=== PATIENT | male | born 1940 | race Caucasian/White ===

== ENCOUNTER → 2017-02-28 | Outpatient (CLI) | payer MEDICARE, OTHER ==
[~2017-02-28] MED LIST: ALLERGY PILL; CALCIUM 600 + M1 TAB PO; CETIRIZINE10 MG PO; CLINDAMYCIN HC300 MG PO; Ciprofloxacin500 MG PO; MELOXICAM15 MG PO; MUCUS ER600 MG PO; MULTI VITAMINS1 TAB PO; NEURONTIN300 MG PO; PRILOSEC40 MG PO; TAMSULOSIN HCL0.4 MG PO; VITAMIN E400 IU PO; VOLTAREN75 MG PO
== END | disposition home or self-care (01) ==
LOC: CT 13:35
DX: I67.82 Cerebral ischemia (principal)

== ENCOUNTER → 2017-03-28 | Outpatient (CLI) | payer MEDICARE, OTHER | END | disposition home or self-care (01) | LOC: US 12:09 | DX: I65.23 Occlusion and stenosis of bilateral carotid arteries (principal); R51 Headache ==

== ENCOUNTER → 2018-04-10 | Outpatient (CLI) | payer MEDICARE, BC | END | disposition home or self-care (01) | LOC: RAD 11:12 | DX: M48.07 Spinal stenosis, lumbosacral region (principal); M51.37 Other intervertebral disc degeneration, lumbosacral region; R20.0 Anesthesia of skin ==

== ENCOUNTER 2018-07-01 14:21 | Emergency (ER) | payer MEDICARE, BC ==
[~2018-07-01] VITALS: Ht 172.7 cm; Wt 83.9 kg
== END 2018-07-01 14:41 | disposition home or self-care (01) ==
LOC: ED 14:21
DX: H00.014 Hordeolum externum left upper eyelid (principal); Z79.899 Other long term (current) drug therapy

== ENCOUNTER 2022-06-30 15:14 | Emergency (ER) | payer MEDICARE, OTHER ==
[~2022-06-30] VITALS: Ht 172.7 cm; Wt 86.8 kg
[~2022-06-30 15:14] MED LIST changes: +DITROPAN XL5 MG PO
[2022-06-30] MEDS ORDERED: SECURA PROTECTI50 GM T ×2 (15:28→15:35)
[2022-06-30] MEDS ORDERED: Nizoral 2%15 GM T ×2 (15:28→15:35)
== END 2022-06-30 15:49 | disposition home or self-care (01) ==
LOC: ED 15:14
DX: B37.49 Other urogenital candidiasis (principal); Z98.890 Other specified postprocedural states

== ENCOUNTER → 2022-09-02 | Outpatient (CLI) | payer OTHER ==
[~2022-09-02] MED LIST changes: +Nizoral 2%15 GM T; +SECURA PROTECTI50 GM T
== END | disposition home or self-care (01) ==
LOC: RAD 10:02
PROVIDERS: ATTEND Internal Medicine
DX: M47.817 Spondylosis without myelopathy or radiculopathy, lumbosacral region (principal); M48.07 Spinal stenosis, lumbosacral region; M47.896 Other spondylosis, lumbar region

== ENCOUNTER 2023-05-09 18:54 | Emergency (ER) | payer OTHER ==
[~2023-05-09] VITALS: Ht 167.6 cm; Wt 81.6 kg
== END 2023-05-09 22:46 ==
LOC: ED 18:54 → MEDIPORT 19:55 → ED 19:55 → MEDIPORT 22:46
DX: M19.011 Primary osteoarthritis, right shoulder (principal); M17.12 Unilateral primary osteoarthritis, left knee; Z98.890 Other specified postprocedural states; Z90.89 Acquired absence of other organs; Z98.41 Cataract extraction status, right eye

== ENCOUNTER 2023-07-29 08:17 | Emergency (ER) | payer OTHER ==
[~2023-07-29] VITALS: Wt 86.6 kg
[2023-07-29 08:58] LABS: HEMATOCRIT 36.2 % (42.0-52.0); MEAN CORPUSCULAR HGB 30.7 pg (27.0-31.0); MEAN CORPUSCULAR HGB CONC 30.7 g/dl (33.0-37.0); MEAN PLATELET VOLUME 9.6 fl (9.6-12.3); PLATELET COUNT AUTOMATED 258 10*3/uL (130-400); RED BLOOD COUNT 3.62 10*6/uL (4.50-5.90); RED CELL DISTRI WIDTH 13.2 % (0-14.5); WHITE BLOOD COUNT 36.2 10*3/uL (4.8-10.8)
[2023-07-29] MEDS ORDERED: CARBIDOPA-LEVO1 EAC6 PO (09:00)
[2023-07-29] MEDS ORDERED: CLARITIN10 MG PO (09:01)
[2023-07-29] MEDS ORDERED: VITAMIN D350 MC3 PO (09:01)
[2023-07-29] MEDS ORDERED: DICLOFENAC SODI75 M3 PO (09:02)
[2023-07-29] MEDS ORDERED: ENTACAPONE200 M1 PO (09:04)
[2023-07-29] MEDS ORDERED: DOCUSATE SOD100 MG PO (09:04)
[2023-07-29] MEDS ORDERED: FINASTERIDE5 M1 PO (09:05)
[2023-07-29] MEDS ORDERED: MILK OF MA400 MG/53 PO (09:06)
[2023-07-29] MEDS ORDERED: MELATONIN1 M7 PO (09:06)
[2023-07-29] MEDS ORDERED: OXYBUTYNIN5 MG PO (09:07)
[2023-07-29] MEDS ORDERED: MIRALAX17 GM PO (09:07)
[2023-07-29] MEDS ORDERED: TRAZODONE100 MG PO (09:08)
[2023-07-29] MEDS ORDERED: TUSSIN100 MG/51 PO (09:09)
[2023-07-29] MEDS ORDERED: TYLENOL325 M1 PO (09:10)
[2023-07-29 09:15] LABS: MANUAL DIFF REFLEX YES
[2023-07-29 09:19] LABS: TOTAL CELLS COUNTED 100 #CELLS
[2023-07-29 09:20] LABS: PLATELET SUFFICIENCY NORMAL (NORMAL)
[2023-07-29 09:21] LABS: ALKALINE PHOSPHATASE 79 U/L (46-116); BUN 22 mg/dl (9-23); CHLORIDE 106 mmol/L (98-107); POTASSIUM 4.1 mmol/L (3.4-5.1); TOTAL PROTEIN 6.3 gm/dL (6.0-8.0); TOXIC GRANULATION SLIGHT; VACUOLATION OF NEUTROPHILS SLIGHT
[2023-07-29 09:37] LABS: SGPT/ALT < 7 U/L (5-49)
[2023-07-29 12:53] LABS: BILIRUBIN Negative (Negative); BLOOD 3+ (Negative); CLARITY Cloudy (Clear); GLUCOSE Negative (Negative); KETONE Negative (Negative); LEUKO ESTERASE 3+ (Negative); NITRITE Negative (Negative); UROBILINOGEN 0.2 E.U./dl (0.0-1.0)
[2023-07-29 13:03] LABS: COLOR Red (Yellow)
[2023-07-29 13:04] LABS: RBC TNTC rbc/hpf (0-2)
== END 2023-07-29 14:44 | disposition short-term general hospital (02) ==
LOC: ED 08:17
PROVIDERS: Student in an Organized Health Care Education/Training Program
DX: R34 Anuria and oliguria (principal); I95.9 Hypotension, unspecified; R65.21 Severe sepsis with septic shock; Z90.89 Acquired absence of other organs; Z98.890 Other specified postprocedural states

== ENCOUNTER 2023-11-07 15:11 | Emergency (ER) | payer MEDICARE ==
[~2023-11-07] VITALS: Wt 79.2 kg
[~2023-11-07 15:11] MED LIST changes: +ASPIRIN CHEWABL81 MG PO; +CARBIDOPA-LEVO1 EAC6 PO; +CEFTRIAXONE2 G1 IV; +CIPROFLOXACIN500 M4 PO; +CLARITIN10 MG PO; +DICLOFENAC SODI75 M3 PO; +DOCUSATE SOD100 MG PO; +ENTACAPONE200 M1 PO; +FINASTERIDE5 M1 PO; +GENTAMICIN IM; +K-TAB20 MEQ PO; +LASIX40 MG PO; +LIPITOR10 MG PO; +MELATONIN5 M1 PO; +MILK OF MA400 MG/53 PO; +MIRALAX17 GM PO; +MONTELUKAST SOD10 MG PO; +NATURE'S BLEND F1 MG PO; +OXYBUTYNIN5 MG PO; +TRAZODONE100 MG PO; +TUSSIN100 MG/51 PO; +TYLENOL325 M1 PO; +VANC1PIG IV; +VITAMIN D350 MC2 PO; +VITAMIN D350 MC3 PO
== END 2023-11-07 19:37 | disposition home or self-care (01) ==
LOC: ED 15:11
DX: T80.211A Bloodstream infection due to central venous catheter, initial encounter (principal); Z98.890 Other specified postprocedural states; Z90.89 Acquired absence of other organs

== ENCOUNTER → 2023-12-18 | Outpatient (CLI) | payer MEDICARE | END | disposition home or self-care (01) | LOC: US 08:00 | PROVIDERS: ATTEND Urology | DX: N28.1 Cyst of kidney, acquired (principal); R33.9 Retention of urine, unspecified; N32.89 Other specified disorders of bladder ==

== ENCOUNTER 2024-02-01 19:10 | Emergency (ER) | payer MEDICARE ==
[2024-02-01 22:18] LABS: BILIRUBIN Negative (Negative); BLOOD 3+ (Negative); CLARITY Turbid (Clear); COLOR Dark Yellow (Yellow); GLUCOSE Negative (Negative); KETONE Negative (Negative); LEUKO ESTERASE 3+ (Negative); NITRITE Positive (Negative); SPECIFIC GRAVITY 1.015 (1.001-1.030)
[2024-02-01 22:37] LABS: BACTERIA 3+; RBC 41-50 rbc/hpf (0-2); WBC TNTC wbc/hpf (0-5)
[2024-02-01] MEDS ORDERED: CIPRO500 MG PO (22:46)
== END 2024-02-01 23:34 ==
LOC: ED 19:10
PROVIDERS: Internal Medicine
DX: N39.0 Urinary tract infection, site not specified (principal); Z46.6 Encounter for fitting and adjustment of urinary device; Z79.2 Long term (current) use of antibiotics; Z79.899 Other long term (current) drug therapy; Z79.82 Long term (current) use of aspirin; Z98.890 Other specified postprocedural states; Z96.642 Presence of left artificial hip joint; Z90.89 Acquired absence of other organs

== ENCOUNTER 2025-03-28 18:45 | Inpatient (IN) | payer OTHER ==
[~2025-03-28] VITALS: Ht 172.7 cm; Wt 82.6 kg
[~2025-03-28 18:45] MED LIST changes: +CEPHALEXIN500 M1 PO; +CIPRO500 MG PO; -TYLENOL325 M1 PO; +TYLENOL325 M2 PO
[2025-03-28 19:00] VITALS: BP 142/54
[2025-03-28 19:57] LABS: BASO # 0.1 10*3/uL (0.0-0.1); BASO % 0.7 % (0.0-1.0); EOS # 0.2 10*3/uL (0.0-0.4); EOS % 2.4 % (1.0-4.0); MEAN CELL VOLUME 99.0 fl (80.0-94.0); MEAN CORPUSCULAR HGB 31.1 pg (27.0-31.0); MEAN PLATELET VOLUME 9.4 fl (9.6-12.3); MONO # 0.6 10*3/uL (0.1-1.0); MONO % 9.3 % (3.0-9.0); NEUT # 4.3 10*3/uL (2.3-7.9); NEUT % 63.8 % (47.0-73.0); NUCLEATED RED BLOOD CELL 0.0 % (0.0-0.0); NUCLEATED RED BLOOD CELL 0.0 10*3/uL (0.0-0.0); PLATELET COUNT AUTOMATED 283 10*3/uL (130-400); RED CELL DISTRI WIDTH 14.3 % (0-14.5)
[2025-03-28 20:18] LABS: BUN 15 mg/dl (9-23)
[2025-03-28 21:09] LABS: BILIRUBIN Negative (Negative); BLOOD Negative (Negative); CLARITY Cloudy (Clear); COLOR Yellow (Yellow); KETONE Trace (Negative); LEUKO ESTERASE 3+ (Negative); NITRITE Positive (Negative); PH 6.5 (4.5-8.0); SPECIFIC GRAVITY 1.015 (1.001-1.030); UROBILINOGEN 0.2 E.U./dl (0.0-1.0)
[2025-03-28 21:19] VITALS: BP 130/47
[2025-03-28 21:20] LABS: BACTERIA 4+; RBC 0-2 rbc/hpf (0-2)
[2025-03-28] MEDS ORDERED: DHIVY 25-100 M1 EAC1 PO (21:59)
[2025-03-28] MEDS ORDERED: TEMAZEPAM 15 MG CAP PO PRN (22:20)
[2025-03-28] MEDS ORDERED: ACETAMINOPHEN 325 MG TAB PO PRN (22:20)
[2025-03-28] MEDS ORDERED: BISACODYL 5 MG TAB PO PRN (22:20)
[2025-03-28] MEDS ORDERED: BISACODYL 10 MG SUPP R PRN (22:20)
[2025-03-28] MEDS ORDERED: Acetaminophen/Hydrocodone 5 MG/325 MG TABLET PO PRN (22:20)
[2025-03-28] MEDS ORDERED: ACETAMINOPHEN 650 MG SUPP R PRN (22:20)
[2025-03-28] MEDS ORDERED: Ondansetron Hydrochloride 4 MG/2 ML VIAL IV PRN (22:20)
[2025-03-28] MEDS ORDERED: IOHEXOL 300 MG/ML 100 ML VIAL IV ONE (22:30)
[2025-03-28 23:45] VITALS: BP 142/44
[2025-03-29] MEDS ORDERED: Ipratropium Brom3 ML INH (00:07)
[2025-03-29] MEDS ORDERED: FLONASE ALLERG9.9 ML NAS (00:08)
[2025-03-29] MEDS ORDERED: MUCUS RELIEF600 MG PO (00:10)
[2025-03-29] MEDS ORDERED: MELATONIN + L-TH3 MG PO (00:13)
[2025-03-29] MEDS ORDERED: MUPIROCIN15 GM T (00:15)
[2025-03-29] MEDS ORDERED: KENALOG 0.1%80 GM T (00:17)
[2025-03-29] MEDS ORDERED: VOLTAREN ARTHRI20 GM T (00:18)
[2025-03-29] MEDS ORDERED: HEEL PROTECTOR DEVICE ONE (00:48)
[2025-03-29] MEDS ORDERED: FOAM BANDAGE HEEL T ONE (00:48)
[2025-03-29] MEDS ORDERED: GUAIFENESIN 600 MG TAB ER PO PRN (02:40)
[2025-03-29] MEDS ORDERED: DICLOFENAC SODIUM 100 GM TUBE T PRN (02:40)
[2025-03-29] MEDS ORDERED: Albuterol Sulf/Ipratropium 3 ML VIAL NEB PRN (02:40)
[2025-03-29 06:26] LABS: BASO # 0.1 10*3/uL (0.0-0.1); BASO % 0.6 % (0.0-1.0); EOS # 0.2 10*3/uL (0.0-0.4); EOS % 2.0 % (1.0-4.0); MEAN CELL VOLUME 98.1 fl (80.0-94.0); MEAN CORPUSCULAR HGB 31.1 pg (27.0-31.0); MEAN PLATELET VOLUME 9.6 fl (9.6-12.3); MONO # 0.8 10*3/uL (0.1-1.0); MONO % 8.9 % (3.0-9.0); NEUT # 7.2 10*3/uL (2.3-7.9); NEUT % 77.7 % (47.0-73.0); NUCLEATED RED BLOOD CELL 0.0 % (0.0-0.0); NUCLEATED RED BLOOD CELL 0.0 10*3/uL (0.0-0.0); PLATELET COUNT AUTOMATED 273 10*3/uL (130-400); RED CELL DISTRI WIDTH 14.7 % (0-14.5)
[2025-03-29 07:03] LABS: BUN 14 mg/dl (9-23)
[2025-03-29 07:04] LABS: SGPT/ALT < 7 U/L (5-49)
[2025-03-29 08:00] VITALS: BP 113/47
[2025-03-29] MEDS ORDERED: ENTACAPONE 200 MG TAB PO SCH (10:00)
[2025-03-29] MEDS ORDERED: FOLIC ACID 1 MG TAB PO SCH (10:00)
[2025-03-29] MEDS ORDERED: FINASTERIDE 5 MG TAB PO SCH (10:00)
[2025-03-29] MEDS ORDERED: Carbidopa/Levodopa 25/100MG 1 TAB TAB PO SCH (10:00)
[2025-03-29] MEDS ORDERED: DOCUSATE SODIUM 100 MG CAP PO SCH (10:00)
[2025-03-29] MEDS ORDERED: GABAPENTIN 300 MG CAP PO SCH (10:00)
[2025-03-29] MEDS ORDERED: ASPIRIN, CHEWABLE 81 MG TAB PO SCH (10:00)
[2025-03-29] MEDS ORDERED: Cholecalciferol 2,000 UNIT TABLET (50 MCG) PO SCH (10:00)
[2025-03-29] MEDS ORDERED: FLUTICASONE PROPIONATE Nasal 16 Gm spray NAS SCH (10:00)
[2025-03-29 12:00] VITALS: BP 96/46
[2025-03-29] MEDS ORDERED: VANCOMYCIN/WATER FOR INJ (PEG) 300 ML IV SCH (12:00)
[2025-03-29 16:00] VITALS: BP 95/47
[2025-03-29] MEDS ORDERED: Menthol/Zinc Oxide 4 GM THIN T SCH (18:00)
[2025-03-29 20:00] VITALS: BP 119/37
[2025-03-29] MEDS ORDERED: ATORVASTATIN CALCIUM 10 MG TAB PO SCH (22:00)
[2025-03-29] MEDS ORDERED: NYSTATIN 15 GM BOT T SCH (22:00)
[2025-03-30] VITALS: BP 107/59
[2025-03-30 06:22] LABS: BASO # 0.1 10*3/uL (0.0-0.1); BASO % 0.9 % (0.0-1.0); EOS # 0.3 10*3/uL (0.0-0.4); EOS % 4.5 % (1.0-4.0); MEAN CELL VOLUME 100.5 fl (80.0-94.0); MEAN CORPUSCULAR HGB 31.4 pg (27.0-31.0); MEAN PLATELET VOLUME 9.5 fl (9.6-12.3); MONO # 0.7 10*3/uL (0.1-1.0); MONO % 11.7 % (3.0-9.0); NEUT # 3.4 10*3/uL (2.3-7.9); NEUT % 58.2 % (47.0-73.0); NUCLEATED RED BLOOD CELL 0.0 % (0.0-0.0); NUCLEATED RED BLOOD CELL 0.0 10*3/uL (0.0-0.0); PLATELET COUNT AUTOMATED 262 10*3/uL (130-400); RED CELL DISTRI WIDTH 14.7 % (0-14.5)
[2025-03-30 06:50] LABS: BUN 16 mg/dl (9-23)
[2025-03-30 06:52] LABS: SGPT/ALT < 7 U/L (5-49)
[2025-03-30 08:00] VITALS: BP 120/90
[2025-03-30 12:00] VITALS: BP 122/49
[2025-03-30 16:00] VITALS: BP 131/46
[2025-03-30 20:00] VITALS: BP 123/52
[2025-03-31] VITALS: BP 106/40
[2025-03-31 07:21] LABS: BASO # 0.1 10*3/uL (0.0-0.1); BASO % 1.1 % (0.0-1.0); EOS # 0.2 10*3/uL (0.0-0.4); EOS % 4.4 % (1.0-4.0); MEAN CELL VOLUME 101.6 fl (80.0-94.0); MEAN CORPUSCULAR HGB 30.9 pg (27.0-31.0); MEAN PLATELET VOLUME 9.6 fl (9.6-12.3); MONO # 0.7 10*3/uL (0.1-1.0); MONO % 12.0 % (3.0-9.0); NEUT # 2.9 10*3/uL (2.3-7.9); NEUT % 53.7 % (47.0-73.0); NUCLEATED RED BLOOD CELL 0.0 % (0.0-0.0); NUCLEATED RED BLOOD CELL 0.0 10*3/uL (0.0-0.0); PLATELET COUNT AUTOMATED 266 10*3/uL (130-400); RED CELL DISTRI WIDTH 14.6 % (0-14.5)
[2025-03-31 07:44] LABS: BUN 15 mg/dl (9-23)
[2025-03-31 08:00] VITALS: BP 113/48
[2025-03-31] MEDS ORDERED: Ciprofloxacin Hydrochloride 500 MG TAB PO SCH ×2 (10:00→22:00)
[2025-03-31] MEDS ORDERED: Piperacillin Sodium/Tazobact 4.5 GM in SODIUM CHLORIDE 0.9% 100 ML IV SCH (10:00)
[2025-03-31 11:51] VITALS: BP 118/38
[2025-03-31] MEDS ORDERED: Ciprofloxacin Hydrochloride 500 MG TAB PO ONE (12:40)
[2025-03-31 16:00] VITALS: BP 120/47
[2025-03-31] MEDS ORDERED: CHAIR CUSHION DEVICE ONE (16:58)
[2025-03-31] MEDS ORDERED: LEPTOSPERMUM HONEY 0.5 OZ TUBE T ONE (18:30)
[2025-03-31] MEDS ORDERED: FOAM BANDAGE 1 EACH BANDAGE T ONE (18:30)
[2025-03-31 20:00] VITALS: BP 120/40
[2025-04-01] VITALS: BP 133/50
[2025-04-01] MEDS ORDERED: VANCOMYCIN/WATER FOR INJ (PEG) 300 ML IV SCH (06:00)
[2025-04-01 08:00] VITALS: BP 116/50
[2025-04-01] MEDS ORDERED: FOAM BANDAGE 1 EACH BANDAGE T ONE (10:13)
[2025-04-01 12:00] VITALS: BP 110/42
[2025-04-01] MEDS ORDERED: REMEDY CALAZIME4 GM T (13:01)
[2025-04-01] MEDS ORDERED: CIPRO500 MG PO (13:01)
[2025-04-01] MEDS ORDERED: CEFPODOXIME PR200 M1 PO (13:01)
[2025-04-01] MEDS ORDERED: ZYVOX600 MG PO (13:01)
== END 2025-04-01 16:01 | DRG 699 ==
LOC: ED 18:45 → 4E 21:37 → EDHOLD 21:37 → 4E 22:55
PROVIDERS: Emergency Medicine; Internal Medicine; Student in an Organized Health Care Education/Training Program; ADMIT Internal Medicine; ATTEND Internal Medicine
DX: T83.511A Infection and inflammatory reaction due to indwelling urethral catheter, initial encounter (principal); E44.0 Moderate protein-calorie malnutrition; L03.317 Cellulitis of buttock; I50.32 Chronic diastolic (congestive) heart failure; Z16.12 Extended spectrum beta lactamase (ESBL) resistance; N39.0 Urinary tract infection, site not specified; N49.2 Inflammatory disorders of scrotum; G89.29 Other chronic pain; F51.04 Psychophysiologic insomnia; E78.5 Hyperlipidemia, unspecified; F32.9 Major depressive disorder, single episode, unspecified; G62.9 Polyneuropathy, unspecified; G20.A1 Parkinson's disease without dyskinesia, without mention of fluctuations; B95.62 Methicillin resistant Staphylococcus aureus infection as the cause of diseases classified elsewhere; D53.9 Nutritional anemia, unspecified; R73.9 Hyperglycemia, unspecified; N40.0 Benign prostatic hyperplasia without lower urinary tract symptoms; Z83.3 Family history of diabetes mellitus; Z80.9 Family history of malignant neoplasm, unspecified; Y92.89 Other specified places as the place of occurrence of the external cause; Z68.27 Body mass index [BMI] 27.0-27.9, adult

== ENCOUNTER 2025-04-17 09:53 | Inpatient (IN) | payer OTHER ==
[~2025-04-17] VITALS: Ht 175.2 cm; Wt 85.3 kg
[~2025-04-17 09:53] MED LIST changes: +CEFPODOXIME PR200 M1 PO; +DHIVY 25-100 M1 EAC1 PO; +FLONASE ALLERG9.9 ML NAS; +Ipratropium Brom3 ML INH; +KENALOG 0.1%80 GM T; +MELATONIN + L-TH3 MG PO; +MUCUS RELIEF600 MG PO; +MUPIROCIN15 GM T; +REMEDY CALAZIME4 GM T; +VOLTAREN ARTHRI20 GM T; +ZYVOX600 MG PO
[2025-04-17] MEDS ORDERED: SODIUM CHLORIDE 0.9% 1,000 ML IV ONE (10:00)
[2025-04-17 10:25] LABS: BASO # 0.0 10*3/uL (0.0-0.1); BASO % 1.0 % (0.0-1.0); EOS # 0.1 10*3/uL (0.0-0.4); EOS % 3.4 % (1.0-4.0); MEAN CELL VOLUME 98.3 fl (80.0-94.0); MEAN CORPUSCULAR HGB 30.8 pg (27.0-31.0); MEAN PLATELET VOLUME 9.5 fl (9.6-12.3); MONO # 0.5 10*3/uL (0.1-1.0); MONO % 13.9 % (3.0-9.0); NEUT # 2.4 10*3/uL (2.3-7.9); NEUT % 62.3 % (47.0-73.0); NUCLEATED RED BLOOD CELL 0.0 % (0.0-0.0); NUCLEATED RED BLOOD CELL 0.0 10*3/uL (0.0-0.0); PLATELET COUNT AUTOMATED 123 10*3/uL (130-400); RED CELL DISTRI WIDTH 14.0 % (0-14.5)
[2025-04-17 10:45] LABS: BUN 14 mg/dl (9-23)
[2025-04-17 10:52] VITALS: BP 146/46
[2025-04-17 11:14] LABS: ABG BASE EXCESS 4.3 mmol/L (-2.0-3.0); ABG O2 SATURATION 98.6 % (94.0-98.0); ARTERIAL BLOOD GAS PH 7.448 (7.350-7.450); ARTERIAL BLOOD GAS PO2 140.9 mmHg (83.0-108.0)
[2025-04-17 12:19] LABS: BILIRUBIN Negative (Negative); BLOOD 2+ (Negative); CLARITY Cloudy (Clear); COLOR Dark Yellow (Yellow); KETONE Trace (Negative); NITRITE Positive (Negative); PH 6.0 (4.5-8.0); SPECIFIC GRAVITY 1.025 (1.001-1.030); UROBILINOGEN 0.2 E.U./dl (0.0-1.0)
[2025-04-17 12:42] LABS: LEUKO ESTERASE 2+ (Negative)
[2025-04-17 12:47] LABS: BACTERIA 3+; CALCIUM OXALATE CRYSTALS 1+; RBC 21-30 rbc/hpf (0-2); WBC TNTC wbc/hpf (0-5)
[2025-04-17] MEDS ORDERED: ACETAMINOPHEN 325 MG TAB PO PRN (12:50)
[2025-04-17] MEDS ORDERED: BISACODYL 10 MG SUPP R PRN (12:50)
[2025-04-17] MEDS ORDERED: ACETAMINOPHEN 650 MG SUPP R PRN (12:50)
[2025-04-17] MEDS ORDERED: BISACODYL 5 MG TAB PO PRN (12:50)
[2025-04-17 16:00] VITALS: BP 141/71
[2025-04-17] MEDS ORDERED: FOAM BANDAGE 5X5 T ONE (19:08)
[2025-04-17] MEDS ORDERED: HEEL PROTECTOR DEVICE ONE (19:09)
[2025-04-17 20:00] VITALS: BP 147/52
[2025-04-17] MEDS ORDERED: FLORASTOR250 MG PO (20:09)
[2025-04-17] MEDS ORDERED: PROTONIX40 MG PO (20:09)
[2025-04-17] MEDS ORDERED: SINEMET 25-1001 EACH PO (20:11)
[2025-04-17] MEDS ORDERED: MUCINEX ER600 MG PO (20:16)
[2025-04-17] MEDS ORDERED: ONDANSETRON HYDR4 MG PO (20:17)
[2025-04-17] MEDS ORDERED: Ondansetron Hydrochloride 4 MG TAB PO PRN (20:25)
[2025-04-17] MEDS ORDERED: Polyethylene Glycol 3350 17 GM PACKET PO PRN (20:25)
[2025-04-17] MEDS ORDERED: GUAIFENESIN 600 MG TAB ER PO PRN (20:25)
[2025-04-17] MEDS ORDERED: DICLOFENAC SODIUM 100 GM TUBE T PRN (20:25)
[2025-04-17] MEDS ORDERED: Albuterol Sulf/Ipratropium 3 ML VIAL NEB PRN (20:40)
[2025-04-17] MEDS ORDERED: TRIAMCINOLONE ACETONIDE 0.1% CREAM 15 GM TUBE T SCH (22:00)
[2025-04-17] MEDS ORDERED: ENTACAPONE 200 MG TAB PO SCH (22:00)
[2025-04-17] MEDS ORDERED: Carbidopa/Levodopa 25/100MG 1 TAB TAB PO SCH (22:00)
[2025-04-17] MEDS ORDERED: ATORVASTATIN CALCIUM 10 MG TAB PO SCH (22:00)
[2025-04-17] MEDS ORDERED: GABAPENTIN 300 MG CAP PO SCH (22:00)
[2025-04-18] VITALS: BP 105/42
[2025-04-18 06:34] LABS: BASO # 0.0 10*3/uL (0.0-0.1); BASO % 0.6 % (0.0-1.0); EOS # 0.1 10*3/uL (0.0-0.4); EOS % 3.1 % (1.0-4.0); MEAN CELL VOLUME 99.7 fl (80.0-94.0); MEAN CORPUSCULAR HGB 30.9 pg (27.0-31.0); MEAN PLATELET VOLUME 9.5 fl (9.6-12.3); MONO # 0.6 10*3/uL (0.1-1.0); MONO % 18.6 % (3.0-9.0); NEUT # 1.8 10*3/uL (2.3-7.9); NEUT % 57.0 % (47.0-73.0); NUCLEATED RED BLOOD CELL 0.0 % (0.0-0.0); NUCLEATED RED BLOOD CELL 0.0 10*3/uL (0.0-0.0); PLATELET COUNT AUTOMATED 118 10*3/uL (130-400); RED CELL DISTRI WIDTH 13.9 % (0-14.5)
[2025-04-18 06:42] LABS: BUN 17 mg/dl (9-23); SGPT/ALT 12 U/L (5-49)
[2025-04-18 08:00] VITALS: BP 117/47
[2025-04-18] MEDS ORDERED: Lactobacillus Acidophilus/LA 1 TAB TAB PO SCH (10:00)
[2025-04-18] MEDS ORDERED: FINASTERIDE 5 MG TAB PO SCH (10:00)
[2025-04-18] MEDS ORDERED: FLUTICASONE PROPIONATE Nasal 16 Gm spray NAS SCH (10:00)
[2025-04-18] MEDS ORDERED: Cholecalciferol 2,000 UNIT TABLET (50 MCG) PO SCH (10:00)
[2025-04-18] MEDS ORDERED: DOCUSATE SODIUM 100 MG CAP PO SCH (10:00)
[2025-04-18] MEDS ORDERED: ASPIRIN, CHEWABLE 81 MG TAB PO SCH (10:00)
[2025-04-18] MEDS ORDERED: FOLIC ACID 1 MG TAB PO SCH (10:00)
[2025-04-18 12:00] VITALS: BP 114/36
[2025-04-18 16:00] VITALS: BP 99/32
[2025-04-18 20:00] VITALS: BP 105/46
[2025-04-18] MEDS ORDERED: NYSTATIN 15 GM BOT T SCH (22:00)
[2025-04-18] MEDS ORDERED: Menthol/Zinc Oxide 4 GM THIN T SCH (22:00)
[2025-04-19] VITALS: BP 106/45
[2025-04-19] MEDS ORDERED: POTASSIUM CHLORIDE 20 MEQ TAB PO ONE (07:40)
[2025-04-19 08:00] VITALS: BP 122/53
[2025-04-19 12:00] VITALS: BP 118/46
[2025-04-19 16:00] VITALS: BP 130/46
[2025-04-19 20:00] VITALS: BP 142/46
[2025-04-20] VITALS: BP 143/46
[2025-04-20 08:00] VITALS: BP 114/58
[2025-04-20 12:00] VITALS: BP 103/56
[2025-04-20] MEDS ORDERED: FOAM BANDAGE HEEL T ONE (14:35)
[2025-04-20] MEDS ORDERED: FOAM BANDAGE 5X5 T ONE ×2 (14:35→20:29)
[2025-04-20] MEDS ORDERED: FOAM BANDAGE 1 EACH BANDAGE T ONE (14:35)
[2025-04-20] MEDS ORDERED: SILICONE CONTACT LAYER WOUND DRESSING (VERSATEL) ONE (14:36)
[2025-04-20 16:00] VITALS: BP 124/36
[2025-04-20 20:00] VITALS: BP 131/62
[2025-04-21] VITALS: BP 146/61
[2025-04-21 06:11] VITALS: BP 148/49
[2025-04-21 08:00] VITALS: BP 147/59
[2025-04-21] MEDS ORDERED: SILVER SULFADIAZINE 25 GM TUBE T SCH (10:00)
[2025-04-21] MEDS ORDERED: Lidocaine Hydrochloride 3% 30 GM CREAM T SCH (10:00)
[2025-04-21 12:00] VITALS: BP 122/39
[2025-04-21 16:00] VITALS: BP 145/50
[2025-04-21 20:00] VITALS: BP 152/69
[2025-04-22] VITALS: BP 160/75
[2025-04-22 06:15] LABS: BASO # 0.0 10*3/uL (0.0-0.1); BASO % 0.5 % (0.0-1.0); EOS # 0.2 10*3/uL (0.0-0.4); EOS % 6.0 % (1.0-4.0); MEAN CELL VOLUME 99.0 fl (80.0-94.0); MEAN CORPUSCULAR HGB 31.0 pg (27.0-31.0); MEAN PLATELET VOLUME 9.9 fl (9.6-12.3); MONO # 0.5 10*3/uL (0.1-1.0); MONO % 13.2 % (3.0-9.0); NEUT # 2.0 10*3/uL (2.3-7.9); NEUT % 50.7 % (47.0-73.0); NUCLEATED RED BLOOD CELL 0.0 % (0.0-0.0); NUCLEATED RED BLOOD CELL 0.0 10*3/uL (0.0-0.0); PLATELET COUNT AUTOMATED 168 10*3/uL (130-400); RED CELL DISTRI WIDTH 13.9 % (0-14.5)
[2025-04-22 06:22] LABS: BUN 15 mg/dl (9-23)
[2025-04-22 08:00] VITALS: BP 125/45
[2025-04-22] MEDS ORDERED: FOAM BANDAGE 5X5 T ONE (10:44)
[2025-04-22 12:00] VITALS: BP 96/54
== END 2025-04-22 12:55 | DRG 698 ==
LOC: ED 09:53 → 4E 12:11 → EDHOLD 12:11 → 4E 13:59
PROVIDERS: Emergency Medicine; Internal Medicine; Registered Nurse; ADMIT Student in an Organized Health Care Education/Training Program; ATTEND Student in an Organized Health Care Education/Training Program
DX: T83.511A Infection and inflammatory reaction due to indwelling urethral catheter, initial encounter (principal); G93.41 Metabolic encephalopathy; I50.32 Chronic diastolic (congestive) heart failure; D61.818 Other pancytopenia; Z16.12 Extended spectrum beta lactamase (ESBL) resistance; G62.9 Polyneuropathy, unspecified; Z66 Do not resuscitate; N40.0 Benign prostatic hyperplasia without lower urinary tract symptoms; E78.5 Hyperlipidemia, unspecified; F32.9 Major depressive disorder, single episode, unspecified; G20.A1 Parkinson's disease without dyskinesia, without mention of fluctuations; S61.511A Laceration without foreign body of right wrist, initial encounter; B96.89 Other specified bacterial agents as the cause of diseases classified elsewhere; Z96.642 Presence of left artificial hip joint; Z79.899 Other long term (current) drug therapy; N39.0 Urinary tract infection, site not specified; Z79.01 Long term (current) use of anticoagulants; Z86.73 Personal history of transient ischemic attack (TIA), and cerebral infarction without residual deficits; Z79.2 Long term (current) use of antibiotics; Z98.41 Cataract extraction status, right eye; Z83.3 Family history of diabetes mellitus; Z80.8 Family history of malignant neoplasm of other organs or systems; X58.XXXA Exposure to other specified factors, initial encounter; Y93.89 Activity, other specified; Y99.8 Other external cause status; Y92.89 Other specified places as the place of occurrence of the external cause; Y83.8 Other surgical procedures as the cause of abnormal reaction of the patient, or of later complication, without mention of misadventure at the time of the procedure